=== PATIENT | female | born 1985 | race Caucasian/White ===

== ENCOUNTER 2019-04-10 20:30 | Emergency (ER) | payer OTHER ==
[~2019-04-10] VITALS: Ht 177.8 cm; Wt 136.1 kg
[~2019-04-10 20:30] MED LIST: CIPROFLOXACIN500 M1 PO; NOHOMEMEDICATIONS; NORCO 5-325 TA1 EACH PO; PERCOCET 5-3251 EACH PO; PHENERGAN 25 MG25 M1 PO
[2019-04-10 20:59] LABS: URINE BILIRUBIN NEGATIVE (Negative); URINE BLOOD 2+ (Negative); URINE CLARITY SL CLOUDY; URINE COLOR YELLOW; URINE GLUCOSE-RANDOM* NEGATIVE (Negative); URINE KETONES NEGATIVE (Negative); URINE NITRITE-REFLEX NEGATIVE (Negative); URINE PROTEIN (DIPSTICK) NEGATIVE (Negative); URINE SPECIFIC GRAVITY 1.015 (1.005-1.035); URINE UROBILINOGEN 0.2 E.U./dl (0.2-1.0)
[2019-04-10 21:03] LABS: URINE LEUKOCYTES-REFLEX 3+ (Negative)
[2019-04-10 21:06] LABS: AMP/METHAMP Negative (Negative); BARBITURATES Negative (Negative); BENZODIAZEPINES Negative (Negative); COCAINE Negative (Negative); METHADONE Negative (Negative); OPIATES Negative (Negative); PCP Negative (Negative)
[2019-04-10 21:07] LABS: BACTERIA-REFLEX >30 Many /HPF (None Seen); CASTS None Seen /LPF (None Seen); CRYSTALS None Seen /LPF (None Seen); SQUAMOUS 0-3 Few /LPF (0-3)
[2019-04-10 21:08] LABS: URINE RBC 3-10 Few /HPF (0-2); URINE WBC-REFLEX 6-15 Few /HPF (0-5)
[2019-04-10 21:15] LABS: ABSOLUTE NEUTROPHILS 6.6 thou/uL (1.4-8.2); BASOPHILS 0.6 % (0.0-2.0); EOSINOPHILS 0.9 % (0.0-3.0); HEMATOCRIT 40.2 % (37.0-47.0); HEMOGLOBIN 13.7 gm/dL (12.0-15.0); LYMPHOCYTES 22.5 % (24.0-44.0); MCH 26.2 pg (26.0-34.0); MCHC 34.1 g/dL (28.0-37.0); MCV 77.1 fL (80.0-100.0); MONOCYTES 6.4 % (1.0-8.0); PLATELET COUNT 341 thou/uL (150-400); POLYS 69.6 % (36.0-66.0); RBC 5.22 mil/uL (4.20-5.00); RDW 15.9 % (10.5-14.5); WBC 9.5 thou/uL (4.0-11.0)
[2019-04-10 21:21] LABS: CALCIUM 9.1 mg/dL (8.5-10.1); CREATININE 0.8 mg/dL (0.6-1.0); POTASSIUM 3.1 mmol/L (3.5-5.1)
[2019-04-11 17:55] VITALS: BP 144/101
== END 2019-04-11 17:57 ==
LOC: ER 20:30
PROVIDERS: Student in an Organized Health Care Education/Training Program
DX: R45.851 Suicidal ideations (principal); N39.0 Urinary tract infection, site not specified